=== PATIENT | male | born 1945 | race Caucasian/White ===

== ENCOUNTER 2017-06-16 07:47 | Emergency (ER) | payer MEDICARE, BC ==
[2017-06-16 09:01] VITALS: BP 117/53
--- NOTE | 2017-06-18 09:10 | ER ---
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 He has tried glycerin suppository without success to treat his constipation. He has marked pain and nausea today. He states he has not had a bowel movement since 06/13/2017. He denies blood in the stool, black tarry stools, vomiting, fever, back pain, kidney stones, abdominal surgery, or history of chronic constipation. He drinks a low-calorie soda pop on a daily basis. His diabetes has been relatively well controlled with metformin 500 mg b.i.d. Hypertension is controlled with lisinopril 20 mg daily and takes an anticoagulant-platelet inhibitor, aspirin 81 mg daily. The last time he has taken Vicodin was two days ago on 06/13/2017. ALLERGIES: He is allergic to penicillin. REVIEW OF SYSTEMS: HEENT: Negative, except for he wears glasses. Slight decreased hearing and does not use a hearing aid. No difficulty swallowing. He has good dentition. CARDIOVASCULAR: He denies chest pain, shortness of breath, cough, dyspnea, syncope, near syncope, or palpitations. GASTROINTESTINAL: He denies blood in the stool, black or tarry stool, diarrhea, or history of constipation. No history of pancreatitis. No abdominal surgery. No inguinal herniorrhaphies. GENITOURINARY: He has a good stream. He denies frequency or urgency. MUSCULOSKELETAL: Good. He denies arthritis or pain in his hips and knees. He has left TKA and right TSA (even today, he has mild discomfort in his right shoulder, but it is much less than in most patients). NEUROLOGIC: Negative. No history of stroke or seizure or head trauma. PSYCHIATRIC: Negative. PHYSICAL EXAMINATION: VITAL SIGNS: Blood pressure is 155/95; repeat at 117/53 (blood pressure is elevated because he has so much pain). Pulse is 80 and at discharge was 71. Temperature 36.4 degrees. BMI of 27.4 kg/m2. Oxygen saturation 100%. Respiratory rate 20 and went down to 18 at discharge. GENERAL: A very pleasant man, who looks younger than his age. He is in marked abdominal discomfort. He is walking about and has difficulty sitting down; he does not want to lay down. Immediate intervention was initiated with rectal palpation and large blood in his stool, which was removed. He was disimpacted. Subsequently, three cups of stool at least were removed. The patient then went to the bathroom, passed more stool, and felt much better. He is up and no longer walking about and sitting in a chair comfortably. He is very appreciative. On further examination: HEENT: PERRLA intact. Eyegrounds negative. Pharynx without abnormality. NECK: Without bruits. No cervical adenopathy or thyromegaly. No tracheal deviation. LUNGS: Clear without rales, rhonchi, or wheezes. HEART: S1 and S2. No irregular rate and rhythm. No murmur. ABDOMEN: Soft. No guarding. No abdominal or discomfort (before there was marked firmness and tightness in the abdomen). He did not want us to palpate his abdomen. No CVA percussion tenderness. GENITALIA: Negative on inspection. EXTREMITIES: Without edema. Sensation was intact in the lower extremities. No glove stocking dysesthesia. Deep tendon reflexes were normoactive. ASSESSMENT: 1. Constipation secondary to having taken tramadol before his shoulder surgery and narcotics after surgery. Also, constipation is likely due to inadequate fluid intake and inadequate walking. The patient does not have any infectious etiology present. 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 Presently, he denies diabetic retinopathy or dysesthesia or paresthesias in a stocking distribution of his lower extremities, which suggests that he has been a fairly active man. 1. Status post previous right shoulder arthroscopic evaluation on 06/11/2018. Status post left total knee arthroplasty. 2. Hypertension. 3. Diabetes, controlled. 4. Dyslipidemia. 5. Coronary artery disease with CABG, two-vessel 30 years ago. PLAN: The patient dismissed to drink 10 ounces of magnesium citrate today. Follow up with his doctor as needed. Encouraged to plan on walking. The more he walks, the more he walks away from the [facility]; and the lesser he walks, the faster he is going to head towards the [facility]. Presently, he has done well. He is clinically minimally overweight. /[id number] ABBEY/FAUSTINA
== END 2017-06-16 09:05 | disposition home or self-care (01) ==
LOC: FB.ED 07:47 → SUPCPDRO 07:47 → FB.ED 09:05
DX: K59.03 Drug induced constipation (principal); T40.4X5A Adverse effect of other synthetic narcotics, initial encounter; E11.9 Type 2 diabetes mellitus without complications; I10 Essential (primary) hypertension; E78.5 Hyperlipidemia, unspecified; I25.810 Atherosclerosis of coronary artery bypass graft(s) without angina pectoris; Z96.652 Presence of left artificial knee joint; Z98.890 Other specified postprocedural states; Z88.0 Allergy status to penicillin; Z79.82 Long term (current) use of aspirin
CPT/HCPCS: 99283

== ENCOUNTER 2017-10-04 18:48 | Emergency (ER) | payer MEDICARE, BC ==
[2017-10-04] MEDS ORDERED: HYDROmorphone 2 MG/ML SDV IM ONE (19:30)
[2017-10-04] MEDS ORDERED: Ondansetron 4 MG Tab.DIS PO SCH (19:30)
[2017-10-04] MEDS ORDERED: Famotidine 20 MG Tab PO ONE (21:27)
[2017-10-04] MEDS ORDERED: Ondansetron 4 MG Tab.DIS PO ONE (21:58)
[2017-10-04] MEDS ORDERED: Sodium Chloride 0.9% 1,000 ML IV ONE (22:05)
--- NOTE | 2017-10-04 22:15 | EDM.PDOC ---
ED HPI GENERAL MEDICAL PROBLEM - General Chief Complaint: Lower Extremity Injury/Pain Stated Complaint: left hip pain, fall Time Seen by Provider: 10/04/17 19:16 Source of Information: Reports: Patient History Limitations: Reports: No Limitations - History of Present Illness INITIAL COMMENTS - FREE TEXT/NARRATIVE: AT HOME AT 89 AM HE WAS PAST A BOBCAT MA THAT WAS ON THE GROUND AND HE WALKED TOO CLOSE TO IT HE DID NOT LIFT HIS RIGHT FOOT HIGH ENOUGH SO HE TRIPPED , LOST HIS BALANCE AN THEN FELL ONTO HIS LEFT SIDE. HE HAS EXPERIENCED INCREASING LEFT HIP PAIN THE DAY PROGRESSED AND NOW HAS DIFFICULTY WALKING ON THE LEFT LEG. HIS TETANUS IS UP TO DATE AND HE HAS A LEFT KNEE ABRASION AND A LEFT TKA. PER THE NURSE'S KNOWLEDGE OF THE FAMILY DYNAMICS, "HE LIVES A TOUGH LIFE HIS IS AN A ETOHIC AND DRINKS ON AND OFF. HE HAS TRIED NUMEROUS TIMES TO GET HER INTO A NH, BUT THE FINANCES WILL NOT SUPPORT THE NH PLACEMENT. HE IS DIABETIC AN USES METFORMIN AND GLYBURIDE. 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: Reports: Acetaminophen left hip Pain Score (Numeric/FACES): 10 - Related Data Allergies Allergy/AdvReac Type Severity Reaction Status Date / Time Penicillins Allergy Rash Verified 06/16/17 08:02 Home Meds: Home Meds Aspirin [Adult Aspirin] 81 mg PO DAILY 06/16/17 [History] Lisinopril [Prinivil] 20 mg PO DAILY 06/16/17 [History] metFORMIN [Glucophage XR] 500 mg PO BIDMEALS 06/16/17 [History] Past Medical History HEENT History: Reports: Impaired Vision Cardiovascular History: Reports: Bypass, High Cholesterol, Hypertension Other Genitourinary History: 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 Endocrine/Metabolic History: Reports: Diabetes, Type II - Infectious Disease History Infectious Disease History: Reports: Chicken Pox, Measles - Past Surgical History HEENT Surgical History: Reports: Adenoidectomy, Tonsillectomy Cardiovascular Surgical History: Reports: Coronary Artery Bypass Other Cardiovascular Surgeries/Procedures: 2 vessel CABG GI Surgical History: Reports: Colonoscopy Musculoskeletal Surgical History: Reports: Arthroscopic Procedure, Knee Replacement, Other (See Below) Other Musculoskeletal Surgeries/Procedures:: L knee replacement, R shoulder scope Social & Family History - Family History Family Medical History: Noncontributory - Tobacco Use Smoking Status *Q: Never Smoker - Caffeine Use Caffeine Use: Reports: Coffee - Recreational Drug Use Recreational Drug Use: No Review of Systems - Review of Systems Review Of Systems: See Below Constitutional: Reports: No Symptoms Eyes: Reports: No Symptoms Ears: Reports: No Symptoms Nose: Reports: No Symptoms Mouth/Throat: Reports: No Symptoms Respiratory: Reports: No Symptoms Cardiovascular: Reports: No Symptoms GI/Abdominal: Reports: No Symptoms Genitourinary: Reports: No Symptoms Musculoskeletal: Reports: Leg Pain Skin: Reports: No Symptoms Neurological: Reports: No Symptoms Psychiatric: Reports: No Symptoms ED EXAM, GENERAL - Physical Exam Exam: See Below Free Text/Narrative:: PATIENT IS WELL DRESSED AND HAS GOOD HYGIENE AND HAS MODERATE PAIN IN HIS LEFT HIPANDY MOVEMENT OF THE ELFT HIP CASUES MOS DERATELY SEVERE PAROXSYMS OF PAIN Exam Limited By: No Limitations General Appearance: Alert, WD/WN, Moderate Distress Eye Exam: Bilateral Eye: Other (NORMAL) Ears: Normal External Exam, Normal Canal, Normal TMs Nose: Normal Inspection, Normal Mucosa Throat/Mouth: Normal Inspection, Normal Lips, Normal Teeth, Normal Gums, Normal Oropharynx, Normal Voice Head: Atraumatic, Normocephalic Neck: Normal Inspection, Supple, Non-Tender, Full Range of Motion Peripheral Pulses: 1+: Carotid (L), Carotid (R), Radial (L), Radial (R), Dorsalis Pedis (L), Dorsalis Pedis (R) GI/Abdominal: Normal Bowel Sounds, Soft, Non-Tender, No Organomegaly, No Distention, No Abnormal Bruit, No Mass, Pelvis Stable, Other (NO ABDOMINA GUARDING OF PAIN) (Male) Exam: No Hernia, Normal Inspection Rectal (Males) Exam: Deferred Back Exam: Normal Inspection, Full Range of Motion Extremities: Other (MARKED LEFT HIP PAIN WITH ANY MOTION NO STEP OFF ON EXTERNA ROTATION, NO FORSHORTENING) Psychiatric: Normal Affect Skin Exam: Warm, Dry, Intact Lymphatic: No Adenopathy Course - Vital Signs Last Recorded V/S: Last Vital Signs Temp 36.8 C 08/30/18 18:48 Pulse 66 10/04/17 18:48 Resp 20 10/04/17 18:48 BP 125/60 10/04/17 18:48 Pulse Ox 99 10/04/17 18:48 - Orders/Labs/Meds Orders: Active Orders 24 hr Category Date Time Status Accu Check [Blood Glucose Check, Bedside] [RC] ONETIME Care 10/04/17 21:28 Active Femur Min 2V Lt [CR] Stat Exams 10/04/17 20:26 Taken Hip Min 2V or 3V w Pelvis Lt [CR] Stat Exams 10/04/17 19:28 Taken Knee 3V Lt [CR] Stat Exams 10/04/17 19:29 Taken Pelvis wo Cont [CT] Stat Exams 10/04/17 21:06 Taken Ondansetron [Zofran ODT] Med 10/04/17 19:30 Active 4 mg PO ONETIME Sodium Chloride 0.9% [Normal Saline] 1,000 ml Med 10/04/17 22:05 Ordered IV .BOLUS Medication Orders Ondansetron HCl (Zofran Odt) 4 mg PO ONETIME QUYNH Last Admin: 10/04/17 19:37 Dose: 4 mg Labs: Laboratory Tests 10/04/17 Range/Units 21:30 POC Glucose 180 H (80-116) mg/dL Meds: Medications Generic Name Dose Route Start Last Admin Trade Name Freq PRN Reason Stop Dose Admin Ondansetron HCl 4 mg 10/04/17 19:30 10/04/17 19:37 Zofran Odt PO 4 mg ONETIME QUYNH Administration Discontinued Medications Generic Name Dose Route Start Last Admin Trade Name Freq PRN Reason Stop Dose Admin Famotidine 20 mg 10/04/17 21:27 10/04/17 21:32 Pepcid PO 10/04/17 21:28 20 mg ONETIME ONE Administration Hydromorphone HCl 1 mg 10/04/17 19:30 10/04/17 19:37 Dilaudid IM 10/04/17 19:31 1 mg ONETIME ONE Administration Ondansetron HCl 4 mg 10/04/17 21:58 Zofran Odt PO 10/04/17 21:59 ONETIME ONE Departure - Departure Time of Disposition: 22:00 (NO HIP RX ON CT NO C SCCULT FRX HE IS AG BOLE TO GET AND WLAK WITH MODERATE PAIN. HE EXPERIENCED NAUSE AND VOIMTING FROM THE DILAUDID SO GIVE 2 MIRIAM OF ZOFRANDN GIVEN FLUSH OF 1000ML NSALINE) Disposition: Home, Self-Care 01 Clinical Impression: Contusion of left hip Qualifiers: Encounter type: initial encounter Qualified Code(s): S70.02XA - Contusion of left hip, initial encounter Vomiting Qualifiers: Vomiting type: unspecified Vomiting Intractability: non-intractable Nausea presence: with nausea Qualified Code(s): R11.2 - Nausea with vomiting, unspecified Diabetes Qualifiers: Diabetes mellitus type: type 2 Diabetes mellitus exterminator helper insulin use: without exterminator helper use Diabetes mellitus complication status: with ophthalmic complications Diabetes mellitus complication detail: with diabetic retinopathy Diabetic retinopathy severity: with mild nonproliferative retinopathy Diabetes mellitus macular edema: without macular edema Laterality: bilateral Qualified Code(s): E11.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 GRADUALLY INCREASE YOUR ACTIVITY TOLERATED USE A WALKER OR CANE TO HELP STABILIZE YOUR WALKING USE IBUPROFEN 600 MG TOGETHER WITH 1000 MG OF TYLENOL EVEFRY 6 HOURS FOR PAIN SEE YOU MD IN THENEXT 7-10 DAY - My Orders Last 24 Hours: My Active Orders 10/04/17 19:28 Hip Min 2V or 3V w Pelvis Lt [CR] Stat 10/04/17 19:29 Knee 3V Lt [CR] Stat 10/04/17 19:30 Ondansetron [Zofran ODT] 4 mg PO ONETIME 10/04/17 20:26 Femur Min 2V Lt [CR] Stat 10/04/17 21:06 Pelvis wo Cont [CT] Stat 10/04/17 21:28 Accu Check [Blood Glucose Check, Bedside] [RC] ONETIME 10/04/17 22:05 Sodium Chloride 0.9% [Normal Saline] 1,000 ml IV .BOLUS - Assessment/Plan Last 24 Hours: My Active Orders 10/04/17 19:28 Hip Min 2V or 3V w Pelvis Lt [CR] Stat 10/04/17 19:29 Knee 3V Lt [CR] Stat 10/04/17 19:30 Ondansetron [Zofran ODT] 4 mg PO ONETIME 10/04/17 20:26 Femur Min 2V Lt [CR] Stat 10/04/17 21:06 Pelvis wo Cont [CT] Stat 10/04/17 21:28 Accu Check [Blood Glucose Check, Bedside] [RC] ONETIME 10/04/17 22:05 Sodium Chloride 0.9% [Normal Saline] 1,000 ml IV .BOLUS
[2017-10-05] VITALS: BP 148/55
== END 2017-10-04 23:26 | disposition home or self-care (01) ==
LOC: FB.ED 18:48
DX: S70.02XA Contusion of left hip, initial encounter (principal); R11.2 Nausea with vomiting, unspecified; E11.3293 Type 2 diabetes mellitus with mild nonproliferative diabetic retinopathy without macular edema, bilateral; I25.810 Atherosclerosis of coronary artery bypass graft(s) without angina pectoris; I10 Essential (primary) hypertension; Z88.0 Allergy status to penicillin; Z79.899 Other long term (current) drug therapy; Z79.82 Long term (current) use of aspirin; Z79.84 Long term (current) use of oral hypoglycemic drugs; W01.0XXA Fall on same level from slipping, tripping and stumbling without subsequent striking against object, initial encounter
CPT/HCPCS: 72192; 73502-LT; 73552-LT; 73562-LT; 82962; 96360; 96372; 99284; A9270-GY; J1170; J7030

== ENCOUNTER 2019-09-10 07:20 | Day surgery (SDC) | payer MEDICARE, BC ==
[2019-09-10] MEDS ORDERED: Ketorolac 30 MG/ML SDV IVPUSH ONE (07:21)
[2019-09-10] MEDS ORDERED: Propofol 200 MG/20 ML SDV IV ONE (07:21)
[2019-09-10] MEDS ORDERED: Dexmedetomidine 200 MCG/2 ML SDV IV ONE (07:21)
[2019-09-10] MEDS ORDERED: Midazolam 1 MG/ML 2 ML SDV IV ONE (07:21)
[2019-09-10] MEDS ORDERED: fentaNYL 100 MCG/2 ML SDV IV ONE (07:21)
[2019-09-10] MEDS ORDERED: ceFAZolin 1 GM Vial IVPUSH ONE (08:00)
[2019-09-10] MEDS ORDERED: ceFAZolin 1 GM in Sodium Chloride 0.9% 50 ML IV ONE (08:00)
[2019-09-10] MEDS ORDERED: Sodium Chloride 0.9% 10 ML Syringe FLUSH PRN (08:00)
[2019-09-10] MEDS ORDERED: Lactated Ringers 1,000 ML IV SCH ×2 (08:13→23:59)
[2019-09-10] MEDS ORDERED: ceFAZolin 1 GM Vial ONE (09:25)
[2019-09-10] MEDS ORDERED: Lidocaine 1% with EPINEPHrine 1:100,000 20 ML MDV INJECT ONE (09:26)
[2019-09-10] MEDS ORDERED: Bupivacaine 0.25% 30 ML SDV INJECT ONE (09:26)
--- NOTE | 2019-09-10 11:07 | PCM.OPNOTE ---
- General Post-Op/Procedure Note Date of Surgery/Procedure: 09/10/19 Operative Procedure(s): L IH repair with mesh Findings: Indirect hernia Pre Op Diagnosis: L IH Post-Op Diagnosis: Same Anesthesia Technique: Local, MAC Primary Surgeon: George Colon Anesthesia Provider: Jacki Kaplan EBL in mLs: 5 Complications: None Condition: Good
[2019-09-10 12:10] VITALS: BP 131/62; PULSE 60
--- NOTE | 2019-09-10 22:12 | OR ---
DATE OF OPERATION: 09/10/2019 SURGEON: George Colon MD PREOPERATIVE DIAGNOSIS: Left inguinal hernia. POSTOPERATIVE DIAGNOSIS: Left inguinal hernia. PROCEDURE: Left inguinal hernia repair with mesh. ANESTHESIA: Local MAC. DESCRIPTION OF PROCEDURE: The patient was brought to the operating room after surgical site had been initialed by myself on the patient. The left groin area was clipped, prepped with ChloraPrep, and draped sterilely. IV antibiotics had been administered just prior to surgery. A 50:50 mixture of 1% lidocaine with epinephrine and 0.25% Marcaine was used to infiltrate the skin and a field block performed just medial to the iliac crest. A routine hernia incision was made 2 fingerbreadths above the inguinal ligament and extended through the subcutaneous tissue. External fascia was identified and opened in line with the external ring. Flaps were raised inferiorly and superiorly. The ilioinguinal nerve was identified and dissected free and retracted superiorly and protected from injury. The cord structures were dissected off the pubic tubercle, and a Bend drain was placed around these. Careful dissection was used to separate off a large cord lipoma which was ligated at its base with 2-0 Vicryl and transected. I then the cord structures from the indirect hernia sac. The hernia sac did not have any contents present. This was twisted and suture ligated at its base with 2-0 Vicryl and excess sac transected. The cord had some extra fatty tissue on that was partially removed, but care taken not to devascularize the cord. A routine hernia repair was then performed by using a large piece of keyhole polypropylene mesh and securing it to the pubic tubercle with 0 Prolene. Several more interrupted sutures were used to secure this to the Barrett ligament inferiorly. A transition stitch was made to the shelving edge of Poupart ligament just medial to the femoral vein. The edges of the mesh were brought around the cord and nerve and secured laterally such that the tip of the small finger could snugly fit into the opening. Excess mesh was trimmed to length and tucked beneath the external fascia. After the inferior edge was secured, the superior edge of the mesh was secured with interrupted 0 Prolene to the muscle providing a tension-free repair. The wound was irrigated with Ancef and saline and return was clear and hemostasis assured. The external fascia was closed with interrupted 3-0 Vicryl. The skin was closed with a running 4-0 Vicryl subcuticular suture. Benzoin and Steri-Strips were placed and a sterile dressing applied. The patient tolerated the procedure well and returned to Recovery in stable condition. ESTIMATED BLOOD LOSS: Less than 5 mL. /[id number] ROSAURA/FAUSTINA
--- NOTE | 2019-09-23 12:37 | PCM.HPR ---
H & P Addendum review - H & P Addendum Review Date of Original H & P: 09/02/19 Date Reviewed: 09/10/19 Time Reviewed: 08:00 Patient was Examined: No Changes
== END 2019-09-10 12:51 | disposition home or self-care (01) ==
LOC: FB.SDS 07:20
PROVIDERS: ATTEND Surgery
DX: K40.90 Unilateral inguinal hernia, without obstruction or gangrene, not specified as recurrent (principal); E78.00 Pure hypercholesterolemia, unspecified; I25.10 Atherosclerotic heart disease of native coronary artery without angina pectoris; N40.0 Benign prostatic hyperplasia without lower urinary tract symptoms; F33.41 Major depressive disorder, recurrent, in partial remission; E11.40 Type 2 diabetes mellitus with diabetic neuropathy, unspecified; E11.22 Type 2 diabetes mellitus with diabetic chronic kidney disease; I12.9 Hypertensive chronic kidney disease with stage 1 through stage 4 chronic kidney disease, or unspecified chronic kidney disease; N18.3 Chronic kidney disease, stage 3 (moderate); F41.9 Anxiety disorder, unspecified; E66.3 Overweight; F51.01 Primary insomnia; E78.1 Pure hyperglyceridemia; E78.2 Mixed hyperlipidemia; Z79.82 Long term (current) use of aspirin; Z79.899 Other long term (current) drug therapy; Z79.84 Long term (current) use of oral hypoglycemic drugs; Z68.28 Body mass index [BMI] 28.0-28.9, adult; Z88.0 Allergy status to penicillin
CPT/HCPCS: 00830; 49505; 82962; C1781; J0690; J1885; J2250; J2704; J3010; J3490; J7120

== ENCOUNTER 2019-10-28 07:23 | Day surgery (SDC) | payer MEDICARE, BC ==
[2019-10-28] MEDS ORDERED: Midazolam 1 MG/ML 2 ML SDV IV ONE (07:24)
[2019-10-28] MEDS ORDERED: fentaNYL 100 MCG/2 ML SDV IV ONE (07:24)
[2019-10-28] MEDS ORDERED: Lactated Ringers 1,000 ML IV SCH (07:30)
[2019-10-28] MEDS ORDERED: Sodium Chloride 0.9% 10 ML Syringe FLUSH PRN (07:30)
[2019-10-28] MEDS ORDERED: acetaZOLAMIDE 500 MG Cap.ER PO ONE (09:30)
[2019-10-28 10:04] VITALS: BP 155/63; PULSE 56
--- NOTE | 2019-10-28 12:37 | OR ---
DATE OF OPERATION: 10/28/2019 SURGEON: Brooklynn Sheridan MD PREOPERATIVE DIAGNOSIS: Visually significant cataract, right eye. POSTOPERATIVE DIAGNOSIS: Visually significant cataract, right eye. PROCEDURES PERFORMED: Phacoemulsification with intraocular lens placement, right eye. ASSISTANTS: None. ANESTHESIA: Local with sedation. COMPLICATIONS: None. BLOOD LOSS: None. IMPLANTS: An Audie ACU0T0, 23.0 diopter lens implanted. CDE: 5.59. DESCRIPTION OF PROCEDURE: After risks and benefits were reviewed with the patient, consent was obtained in the preoperative area, and the operative eye was marked with a surgical pen. In the preoperative area, a pledget was used to dilate the pupil consisting of a mixture of phenylephrine 10%, cyclopentolate 2%, moxifloxacin 0.5%, and bupivacaine 0.75%. The patient was taken to the operating room, where a time-out was performed, and the patient was placed under monitored anesthesia care. Topical tetracaine was used for anesthesia. The operative eye was prepped and draped for ophthalmic surgery, and the microscope was brought into position and focused. A paracentesis incision was made, followed by injection of preservative-free 1% lidocaine into the anterior chamber, followed by injection of Viscoat into the anterior chamber. A microkeratome blade was used to make a corneal limbal incision temporally. A cystotome was used to make the beginning of the capsulorrhexis, which was carried around 360 degrees in a curvilinear fashion using Utrata forceps. A Ward cannula with BSS was used to hydrodissect and hydrodelineate the nucleus. The nucleus was removed in a divide and conquer manner using phacoemulsification. Irrigation and aspiration were used to remove the remaining cortical material. Provisc was used to inflate the capsular bag, and a pre-loaded Audie ACU0T0, 23.0 diopter lens, serial number [id number] was injected into the capsular bag. A Sinskey hook was used to position and center the lens. Next, irrigation and aspiration was used to remove any remaining viscoelastic and cortical material from the anterior chamber. BSS on a cannula was used to inflate the anterior chamber and hydrate the wound. The wound was checked and found to be watertight. 1 mg of Moxifloxacin was injected into the anterior chamber. Drapes were removed and the eye was cleaned. A drop of brimonidine 0.15% and a drop of TobraDex was placed. The eye was shielded, and the patient was taken to the recovery room in stable condition. CC: ELSA CM OD CC: GIOVANNY MAN PA-C /[id number] YURIDIA/FAUSTINA
== END 2019-10-28 10:15 | disposition home or self-care (01) ==
LOC: FB.SDS 07:23
PROVIDERS: ATTEND Ophthalmology
DX: E11.36 Type 2 diabetes mellitus with diabetic cataract (principal); H25.811 Combined forms of age-related cataract, right eye; E11.22 Type 2 diabetes mellitus with diabetic chronic kidney disease; I12.9 Hypertensive chronic kidney disease with stage 1 through stage 4 chronic kidney disease, or unspecified chronic kidney disease; N18.9 Chronic kidney disease, unspecified; I25.10 Atherosclerotic heart disease of native coronary artery without angina pectoris; M54.9 Dorsalgia, unspecified; M25.551 Pain in right hip; H52.4 Presbyopia; Z79.84 Long term (current) use of oral hypoglycemic drugs; Z79.899 Other long term (current) drug therapy; Z79.82 Long term (current) use of aspirin; Z88.0 Allergy status to penicillin
CPT/HCPCS: 00142; 66984; 82962; A9270; J2250; J3010; J7120; V2632

== ENCOUNTER 2021-11-05 11:49 | Emergency (ER) | payer MEDICARE, BC ==
[2021-11-05] MEDS ORDERED: Sodium Chloride 0.9% 10 ML Syringe FLUSH PRN (11:55)
[2021-11-05] MEDS ORDERED: Aspirin 81 MG Tab.Chew PO ONE (11:56)
[2021-11-05] MEDS ORDERED: Simethicone 80 MG Tab.Chew PO STA (11:59)
[2021-11-05] MEDS ORDERED: Aluminum Hydroxide/Magnesium Hydroxide Susp 30 ML Cup PO STA (12:00)
[2021-11-05] MEDS ORDERED: Meclizine 25 MG Tab PO ONE (12:13)
[2021-11-05 12:30] LABS: ESTIMATED GFR 62 mL/min (>60)
[2021-11-05] MEDS ORDERED: Ondansetron 4 MG Tab.DIS PO ONE (13:00)
[2021-11-05] MEDS ORDERED: Lactated Ringers 1,000 ML IV ONE (13:20)
[2021-11-05] MEDS ORDERED: Metoclopramide 10 MG/2 ML SDV IVPUSH ONE (14:29)
[2021-11-05] MEDS ORDERED: Iopamidol 755 Mg/ML 75 ML Bottle IV ONE (14:43)
[2021-11-05 15:51] VITALS: BP 158/48; PULSE 53
== END 2021-11-05 17:32 ==
LOC: FB.ED 11:49
DX: T58.91XA Toxic effect of carbon monoxide from unspecified source, accidental (unintentional), initial encounter (principal); R41.0 Disorientation, unspecified; I25.10 Atherosclerotic heart disease of native coronary artery without angina pectoris; E78.00 Pure hypercholesterolemia, unspecified; I12.9 Hypertensive chronic kidney disease with stage 1 through stage 4 chronic kidney disease, or unspecified chronic kidney disease; E11.22 Type 2 diabetes mellitus with diabetic chronic kidney disease; N18.9 Chronic kidney disease, unspecified; Z88.0 Allergy status to penicillin; Z79.899 Other long term (current) drug therapy; Z79.82 Long term (current) use of aspirin; Z79.84 Long term (current) use of oral hypoglycemic drugs; Z95.1 Presence of aortocoronary bypass graft; Z20.822 Contact with and (suspected) exposure to COVID-19
CPT/HCPCS: 36415; 70450; 80048; 81001; 82375; 83690; 84484; 85027; 96361; 96374; 99284; 99285; A9270; J2765; J3490; J7120; Q0162; U0002

== ENCOUNTER 2022-06-15 20:25 | Emergency (ER) | payer BC, MEDICARE ==
[2022-06-15] MEDS ORDERED: Sodium Chloride 0.9% 10 ML Syringe FLUSH PRN (20:36)
[2022-06-15 21:10] LABS: BASOPHILS PERCENT AUTO 0.7 % (0.3-3.8); EOSINOPHILS ABSOLUTE AUTO 0.1 x10-3/uL (0.0-0.6); EOSINOPHILS PERCENT AUTO 1.7 % (0.1-6.8); HEMATOCRIT 42.7 % (38.3-50.1); LYMPHOCYTES ABSOLUTE AUTO 1.2 x10-3/uL (0.5-4.5); LYMPHOCYTES PERCENT AUTO 20.5 % (15.8-45.3); MEAN CORPUSCULAR HEMOGLOBIN 31.4 pg (27.0-33.3); MEAN CORPUSCULAR HGB CONC 32.7 g/dL (28.7-35.3); MEAN CORPUSCULAR VOLUME 96.1 fL (80.8-98.7); MEAN PLATELET VOLUME 9.2 fL (6.7-11.0); MONOCYTES ABSOLUTE AUTO 0.4 x10-3/uL (0.0-1.2); MONOCYTES PERCENT AUTO 6.8 % (5.5-15.2); NEUTROPHILS ABSOLUTE AUTO 4.2 x10-3/uL (1.7-6.9); NEUTROPHILS PERCENT AUTO 70.3 % (40.3-71.8); PLATELET COUNT,PLT 199 x10(3)uL (117-477); RED BLOOD CELL COUNT 4.44 x10(6)uL (3.90-5.90); RED CELL DISTRIBUTION WIDTH 13.3 % (12.4-15.0); WHITE BLOOD CELL COUNT,WBC 5.9 x10-3/uL (3.2-10.1)
[2022-06-15 21:25] LABS: BLOOD UREA NITROGEN,BUN 31 mg/dL (7-18); BUN/CREATININE RATIO 23.8 (9-20); CALCIUM 9.4 mg/dL (8.6-10.2); CARBON DIOXIDE,CO2 21 mmol/L (21-32); CHLORIDE,CL 103 mmol/L (100-110); CREATININE 1.3 mg/dL (0.70-1.30); ESTIMATED GFR 56 mL/min (>60); GLUCOSE RANDOM 218 mg/dL (80-116); POTASSIUM,K 5.2 mmol/L (3.5-5.3); SODIUM,NA 137 mmol/L (135-145)
[2022-06-15 21:31] LABS: A/G RATIO 1.4; ALANINE AMINOTRANSFERASE,ALT 35 U/L (12-36); ALBUMIN 4.1 g/dL (3.2-4.6); ALKALINE PHOSPHATASE 77 IU/L (56-112); ASPARTATE AMNIOTRANSFERASE,AST 26 IU/L (5-25); BILIRUBIN TOTAL 0.6 mg/dL (0.1-1.3); PROTEIN TOTAL,TP 7.1 g/dL (6.0-8.0)
[2022-06-15] MEDS ORDERED: Magnesium Oxide 400 MG Tab PO ONE (21:41)
[2022-06-16 00:58] VITALS: BP 122/54; PULSE 64
== END 2022-06-15 22:30 | disposition home or self-care (01) ==
LOC: FB.ED 20:25
DX: R53.1 Weakness (principal); E83.42 Hypomagnesemia; I25.10 Atherosclerotic heart disease of native coronary artery without angina pectoris; E78.00 Pure hypercholesterolemia, unspecified; I12.9 Hypertensive chronic kidney disease with stage 1 through stage 4 chronic kidney disease, or unspecified chronic kidney disease; E11.22 Type 2 diabetes mellitus with diabetic chronic kidney disease; N18.9 Chronic kidney disease, unspecified; R29.6 Repeated falls; Z88.0 Allergy status to penicillin; Z79.899 Other long term (current) drug therapy; Z79.82 Long term (current) use of aspirin
CPT/HCPCS: 36415; 71045; 80053; 83735; 83880; 84484; 85025; 93005; 99285; A9270-GY

== ENCOUNTER 2022-10-08 11:57 | Emergency (ER) | payer MEDICARE ==
[2022-10-08 13:07] VITALS: BP 130/43; PULSE 73
[2022-10-08] MEDS ORDERED: Na Phos,M-B/Na Phos,DI-B 60 ML, Mineral Oil 50 ML, Docusate Sodium 400 MG, Magnesium Ci... RECTAL ONE ×4 (13:29)
[2022-10-08] MEDS ORDERED: Sodium Phosphate,Monobasic/Sodium Phosphate,Dibasic Enema 133 ML Bottle RECTAL ONE (13:38)
== END 2022-10-08 14:31 | disposition home or self-care (01) ==
LOC: FB.ED 11:57
DX: K56.41 Fecal impaction (principal); N32.0 Bladder-neck obstruction; I25.10 Atherosclerotic heart disease of native coronary artery without angina pectoris; E78.00 Pure hypercholesterolemia, unspecified; E11.22 Type 2 diabetes mellitus with diabetic chronic kidney disease; I12.9 Hypertensive chronic kidney disease with stage 1 through stage 4 chronic kidney disease, or unspecified chronic kidney disease; N18.9 Chronic kidney disease, unspecified; Z95.1 Presence of aortocoronary bypass graft; Z88.0 Allergy status to penicillin
CPT/HCPCS: 82947; 99284

== ENCOUNTER 2023-06-11 16:16 | Emergency (ER) | payer MEDICARE ==
[2023-06-11 17:36] LABS: BASOPHILS ABSOLUTE AUTO 0.1 x10-3/uL (0.0-0.3); BASOPHILS PERCENT AUTO 1.3 % (0.3-3.8); BLOOD UREA NITROGEN,BUN 21 mg/dL (7-18); BUN/CREATININE RATIO 19.1 (9-20); CALCIUM 8.5 mg/dL (8.6-10.2); CARBON DIOXIDE,CO2 32 mmol/L (21-32); CHLORIDE,CL 104 mmol/L (100-110); CREATININE 1.1 mg/dL (0.70-1.30); EOSINOPHILS ABSOLUTE AUTO 0.1 x10-3/uL (0.0-0.6); EOSINOPHILS PERCENT AUTO 1.9 % (0.1-6.8); ESTIMATED GFR 68 mL/min (>60); GLUCOSE RANDOM 244 mg/dL (80-116); HEMATOCRIT 37.2 % (38.3-50.1); HEMOGLOBIN 12.2 g/dL (12.9-17.7); LYMPHOCYTES ABSOLUTE AUTO 1.4 x10-3/uL (0.5-4.5); LYMPHOCYTES PERCENT AUTO 30.6 % (15.8-45.3); MEAN CORPUSCULAR HEMOGLOBIN 30.7 pg (27.0-33.3); MEAN CORPUSCULAR HGB CONC 32.7 g/dL (28.7-35.3); MEAN CORPUSCULAR VOLUME 93.9 fL (80.8-98.7); MONOCYTES ABSOLUTE AUTO 0.4 x10-3/uL (0.0-1.2); MONOCYTES PERCENT AUTO 9.1 % (5.5-15.2); NEUTROPHILS ABSOLUTE AUTO 2.7 x10-3/uL (1.7-6.9); NEUTROPHILS PERCENT AUTO 57.1 % (40.3-71.8); PLATELET COUNT,PLT 180 x10(3)uL (117-477); POTASSIUM,K 4.1 mmol/L (3.5-5.3); RED BLOOD CELL COUNT 3.97 x10(6)uL (3.90-5.90); RED CELL DISTRIBUTION WIDTH 12.5 % (12.4-15.0); SODIUM,NA 141 mmol/L (135-145); WHITE BLOOD CELL COUNT,WBC 4.7 x10-3/uL (3.2-10.1)
[2023-06-11 17:40] LABS: BILIRUBIN,URINE NEGATIVE (NEGATIVE); GLUCOSE,URINE >1000 mg/dL (NORMAL); KETONES,URINE NEGATIVE (NEGATIVE); LEUKOCYTE ESTERASE,URINE NEGATIVE (NEGATIVE); NITRITE,URINE NEGATIVE (NEGATIVE); OCCULT BLOOD,URINE NEGATIVE (NEGATIVE); PROTEIN,URINE NEGATIVE (NEGATIVE); UROBILINOGEN,URINE NORMAL (NEGATIVE)
[2023-06-11 17:41] LABS: APPEARANCE,URINE CLEAR (CLEAR); BACTERIA,URINE RARE (NS); COLOR,URINE YELLOW (YELLOW); RBC,URINE 0-5 (0-5); SQUAMOUS EPITHELIAL CELLS,UR OCCASIONAL (NS,R,O); WBC,URINE 0-5 (0-5)
[2023-06-11 20:03] VITALS: BP 169/65; PULSE 61
== END 2023-06-11 20:02 | disposition home or self-care (01) ==
LOC: FB.ED 16:16
DX: R10.32 Left lower quadrant pain (principal); I10 Essential (primary) hypertension; E11.65 Type 2 diabetes mellitus with hyperglycemia; I25.10 Atherosclerotic heart disease of native coronary artery without angina pectoris; E78.00 Pure hypercholesterolemia, unspecified; Z88.0 Allergy status to penicillin; Z79.84 Long term (current) use of oral hypoglycemic drugs; Z79.82 Long term (current) use of aspirin; Z79.899 Other long term (current) drug therapy
CPT/HCPCS: 36415; 74176; 80048; 81001; 85025; 86140; 99284

== ENCOUNTER 2023-12-05 14:43 | Emergency (ER) | payer MEDICARE ==
[2023-12-05 15:17] VITALS: BP 144/58; PULSE 61
[2023-12-05] MEDS: Naproxen 250 MG Tab PO STA (15:30)
[2023-12-05] MEDS: Ciprofloxacin 500 MG Tab PO ONE (15:31)
[2023-12-05] MEDS: traMADol 50 MG Tab PO ONE (15:31)
== END 2023-12-05 15:57 | disposition home or self-care (01) ==
LOC: FB.ED 14:43
DX: N45.1 Epididymitis (principal); I25.10 Atherosclerotic heart disease of native coronary artery without angina pectoris; E78.00 Pure hypercholesterolemia, unspecified; I10 Essential (primary) hypertension; E11.9 Type 2 diabetes mellitus without complications; Z90.49 Acquired absence of other specified parts of digestive tract; Z79.84 Long term (current) use of oral hypoglycemic drugs; Z79.899 Other long term (current) drug therapy; Z79.4 Long term (current) use of insulin; Z79.82 Long term (current) use of aspirin; Z88.0 Allergy status to penicillin
CPT/HCPCS: 99283; A9270-GY

== ENCOUNTER 2024-04-21 16:33 | Emergency (ER) | payer MEDICARE ==
[2024-04-21] MEDS ORDERED: Sodium Chloride 0.9% 10 ML Syringe FLUSH PRN (17:08)
[2024-04-21 17:23] LABS: BASOPHILS ABSOLUTE AUTO 0.1 x10-3/uL (0.0-0.3); BASOPHILS PERCENT AUTO 1.1 % (0.3-3.8); EOSINOPHILS ABSOLUTE AUTO 0.2 x10-3/uL (0.0-0.6); EOSINOPHILS PERCENT AUTO 3.7 % (0.1-6.8); HEMATOCRIT 38.1 % (38.3-50.1); HEMOGLOBIN 12.6 g/dL (12.9-17.7); LYMPHOCYTES ABSOLUTE AUTO 1.5 x10-3/uL (0.5-4.5); LYMPHOCYTES PERCENT AUTO 29.7 % (15.8-45.3); MEAN CORPUSCULAR HEMOGLOBIN 30.8 pg (27.0-33.3); MEAN CORPUSCULAR VOLUME 93.1 fL (80.8-98.7); MEAN PLATELET VOLUME 9.2 fL (6.7-11.0); MONOCYTES ABSOLUTE AUTO 0.3 x10-3/uL (0.0-1.2); MONOCYTES PERCENT AUTO 6.1 % (5.5-15.2); NEUTROPHILS PERCENT AUTO 59.4 % (40.3-71.8); PLATELET COUNT,PLT 189 x10(3)uL (117-477); RED BLOOD CELL COUNT 4.09 x10(6)uL (3.90-5.90); RED CELL DISTRIBUTION WIDTH 12.7 % (12.4-15.0)
[2024-04-21 17:28] LABS: BLOOD UREA NITROGEN,BUN 18 mg/dL (7-18); BUN/CREATININE RATIO 13.8 (9-20); CALCIUM 8.9 mg/dL (8.6-10.2); CARBON DIOXIDE,CO2 30 mmol/L (21-32); CHLORIDE,CL 105 mmol/L (100-110); CREATININE 1.3 mg/dL (0.70-1.30); EST CRCL DRUG DOSING (CG) 41.67 mL/min; ESTIMATED GFR 55 mL/min (>60); GLUCOSE RANDOM 197 mg/dL (80-116); POTASSIUM,K 4.9 mmol/L (3.5-5.3); SODIUM,NA 142 mmol/L (135-145)
[2024-04-21 17:38] LABS: LACTIC ACID 1.3 mmol/L (0.4-2.0)
[2024-04-21 17:39] LABS: A/G RATIO 1.1; ALANINE AMINOTRANSFERASE,ALT 25 U/L (12-36); ALBUMIN 3.3 g/dL (3.2-4.6); ALKALINE PHOSPHATASE 79 IU/L (56-112); ASPARTATE AMNIOTRANSFERASE,AST 20 IU/L (5-25); BILIRUBIN TOTAL 0.2 mg/dL (0.1-1.3); PROTEIN TOTAL,TP 6.3 g/dL (6.0-8.0)
[2024-04-21 17:39] LABS: BILIRUBIN,URINE NEGATIVE (NEGATIVE); GLUCOSE,URINE >1000 mg/dL (NORMAL); KETONES,URINE NEGATIVE (NEGATIVE); LEUKOCYTE ESTERASE,URINE SMALL (NEGATIVE); NITRITE,URINE NEGATIVE (NEGATIVE); OCCULT BLOOD,URINE NEGATIVE (NEGATIVE); PROTEIN,URINE NEGATIVE (NEGATIVE); UROBILINOGEN,URINE NORMAL (NEGATIVE)
[2024-04-21 17:47] LABS: APPEARANCE,URINE CLEAR (CLEAR); BACTERIA,URINE MODERATE (NS); COLOR,URINE YELLOW (YELLOW); RBC,URINE 0-5 (0-5); SQUAMOUS EPITHELIAL CELLS,UR FEW (NS,R,O); WBC,URINE 0-5 (0-5)
[2024-04-21] MEDS: Iopamidol 755 Mg/ML 100 ML Bottle IV SCH (17:56)
[2024-04-21] MEDS: Sodium Chloride 0.9% 1,000 ML IV ONE (18:14)
[2024-04-21 18:19] VITALS: BP 165/72; PULSE 53
== END 2024-04-21 19:45 | disposition home or self-care (01) ==
LOC: FB.ED 16:33
DX: S39.013A Strain of muscle, fascia and tendon of pelvis, initial encounter (principal); L30.4 Erythema intertrigo; D64.9 Anemia, unspecified; I12.9 Hypertensive chronic kidney disease with stage 1 through stage 4 chronic kidney disease, or unspecified chronic kidney disease; N18.31 Chronic kidney disease, stage 3a; E11.65 Type 2 diabetes mellitus with hyperglycemia; E11.22 Type 2 diabetes mellitus with diabetic chronic kidney disease; R41.0 Disorientation, unspecified; E78.00 Pure hypercholesterolemia, unspecified; Z88.0 Allergy status to penicillin; Z79.82 Long term (current) use of aspirin; Z79.4 Long term (current) use of insulin; Z79.899 Other long term (current) drug therapy; X58.XXXA Exposure to other specified factors, initial encounter
CPT/HCPCS: 74177; 80053; 81001; 83605; 85025; 86140; 87086; 87088; 87186; 96360; 99285; J7030; Q9967

== ENCOUNTER 2024-04-29 06:26 | Day surgery (SDC) | payer BC, MEDICARE ==
[2024-04-29] MEDS ORDERED: fentaNYL 100 MCG/2 ML SDV IV ONE (06:27)
[2024-04-29] MEDS ORDERED: Midazolam 1 MG/ML 2 ML SDV IV ONE (06:27)
[2024-04-29] MEDS: Lactated Ringers 1,000 ML IV SCH (07:08)
[2024-04-29] MEDS: Sodium Chloride 0.9% 10 ML Syringe FLUSH PRN (07:08)
[2024-04-29 08:39] VITALS: PULSE 50
[2024-04-29] MEDS: acetaZOLAMIDE 500 MG Cap.ER PO ONE (08:54)
[2024-04-29 12:06] VITALS: BP 163/65
== END 2024-04-29 09:16 | disposition home or self-care (01) ==
LOC: FB.SDS 06:26
PROVIDERS: ATTEND Ophthalmology
DX: E11.36 Type 2 diabetes mellitus with diabetic cataract (principal); H25.812 Combined forms of age-related cataract, left eye; I25.10 Atherosclerotic heart disease of native coronary artery without angina pectoris; Z79.82 Long term (current) use of aspirin; Z79.899 Other long term (current) drug therapy
CPT/HCPCS: 00142; 82947; 99100; A9270-GY; J2250; J3010; J7120; V2632

== ENCOUNTER 2024-09-22 09:56 | Emergency (ER) | payer MEDICARE ==
[2024-09-22 10:44] VITALS: BP 132/57
[2024-09-22 11:09] LABS: BASOPHILS ABSOLUTE AUTO 0.1 x10-3/uL (0.0-0.3); BASOPHILS PERCENT AUTO 1.1 % (0.3-3.8); EOSINOPHILS ABSOLUTE AUTO 0.1 x10-3/uL (0.0-0.6); EOSINOPHILS PERCENT AUTO 2.2 % (0.1-6.8); LYMPHOCYTES ABSOLUTE AUTO 1.3 x10-3/uL (0.5-4.5); LYMPHOCYTES PERCENT AUTO 27.9 % (15.8-45.3); MEAN PLATELET VOLUME 9.1 fL (6.7-11.0); MONOCYTES ABSOLUTE AUTO 0.3 x10-3/uL (0.0-1.2); MONOCYTES PERCENT AUTO 6.6 % (5.5-15.2); NEUTROPHILS ABSOLUTE AUTO 3.0 x10-3/uL (1.7-6.9); NEUTROPHILS PERCENT AUTO 62.2 % (40.3-71.8); PLATELET COUNT,PLT 169 x10(3)uL (117-477); RED BLOOD CELL COUNT 3.93 x10(6)uL (3.90-5.90); RED CELL DISTRIBUTION WIDTH 13.0 % (12.4-15.0); WHITE BLOOD CELL COUNT,WBC 4.7 x10-3/uL (3.2-10.1)
[2024-09-22 11:10] LABS: GLUCOSE,URINE NORMAL (NORMAL); OCCULT BLOOD,URINE NEGATIVE (NEGATIVE)
[2024-09-22 11:12] LABS: BLOOD UREA NITROGEN,BUN 25 mg/dL (7-18); CARBON DIOXIDE,CO2 28 mmol/L (21-32); CHLORIDE,CL 109 mmol/L (100-110); CREATININE 1.1 mg/dL (0.70-1.30); ESTIMATED GFR 67 mL/min (>60); GLUCOSE RANDOM 112 mg/dL (80-116); POTASSIUM,K 4.8 mmol/L (3.5-5.3); SODIUM,NA 144 mmol/L (135-145)
[2024-09-22 11:13] LABS: APPEARANCE,URINE CLEAR (CLEAR)
[2024-09-22 11:17] LABS: A/G RATIO 1.3; ALANINE AMINOTRANSFERASE,ALT 45 U/L (12-36); ASPARTATE AMNIOTRANSFERASE,AST 41 IU/L (5-25); BILIRUBIN TOTAL 0.2 mg/dL (0.1-1.3); PROTEIN TOTAL,TP 6.1 g/dL (6.0-8.0)
[2024-09-22 11:20] LABS: LACTIC ACID 1.2 mmol/L (0.4-2.0)
[2024-09-22 12:26] VITALS: PULSE 60
== END 2024-09-22 12:30 | disposition home or self-care (01) ==
LOC: FB.ED 09:56
DX: F03.90 Unspecified dementia, unspecified severity, without behavioral disturbance, psychotic disturbance, mood disturbance, and anxiety (principal); E86.0 Dehydration; I25.10 Atherosclerotic heart disease of native coronary artery without angina pectoris; E78.00 Pure hypercholesterolemia, unspecified; I12.9 Hypertensive chronic kidney disease with stage 1 through stage 4 chronic kidney disease, or unspecified chronic kidney disease; N18.9 Chronic kidney disease, unspecified; E11.22 Type 2 diabetes mellitus with diabetic chronic kidney disease; Z88.0 Allergy status to penicillin; Z88.8 Allergy status to other drugs, medicaments and biological substances; Z79.82 Long term (current) use of aspirin; Z79.899 Other long term (current) drug therapy; Z79.4 Long term (current) use of insulin; Z95.1 Presence of aortocoronary bypass graft
CPT/HCPCS: 36415; 70450; 71045; 80053; 81003; 83605; 84484; 85025; 93005; 96360; 99285; J7030; 93010; 99284

== ENCOUNTER 2024-10-22 11:25 | Emergency (ER) | payer MEDICARE ==
[2024-10-22] MEDS: Acetaminophen/oxyCODONE 325-5 MG Tab PO STA (12:18)
[2024-10-22 13:48] VITALS: BP 115/58; PULSE 68
== END 2024-10-22 13:46 ==
LOC: FB.ED 11:25
DX: M54.30 Sciatica, unspecified side (principal); M54.16 Radiculopathy, lumbar region; Z88.0 Allergy status to penicillin; Z79.899 Other long term (current) drug therapy
CPT/HCPCS: 99283; A9270-GY